=== PATIENT | female | born 1990 | race Caucasian/White ===

== ENCOUNTER 2022-01-02 12:00 | Inpatient (IN) ==
[2022-01-02] MEDS ORDERED: Promethazine INJ(RESTRICTED) 25 MG/ML 1 ml VIAL IV PRN (13:01)
[2022-01-02] MEDS ORDERED: Buffered Lidocaine 1% SYRIN 1 ml INTRADERM ONE (13:01)
[2022-01-02] MEDS ORDERED: Lactated Ringers 1000 ml BAG 1,000 ML IV ONE ×2 (13:01→16:11)
[2022-01-02] MEDS ORDERED: Nalbuphine 10 MG/ML 1 ML VIAL IV PRN (13:01)
[2022-01-02 13:27] LABS: ABS Eosinophils 0.1 10^3/ul (0-0.6); ABS Lymphocytes 1.3 10^3/ul (1.0-4.8); ABS Monocytes 0.9 10^3/ul (0-0.8); ABS Neutrophils 11.5 10^3/ul (1.5-7.7); Eosinophil % 0.6 %; Hematocrit 35 % (35-47); Hemoglobin 11.6 g/dL (12.0-16.0); Lymphocyte % 9.6 %; Mean Corpuscular HGB Conc 33 g/dL (31-36); Mean Corpuscular Hemoglobin 29 pg (27-31); Mean Corpuscular Volume 88 fL (80-97); Mean Platelet Volume 9.7 fL (7.4-10.4); Platelet Count 227 10^3/uL (150-450); Red Blood Count 4.01 10^6 /uL (3.70-4.87); Red Cell Distribution Width 13 % (10-15); White Blood Count 13.8 10^3/uL (3.5-10.8)
[2022-01-02 14:21] LABS: Urine Benzodiazepine Screen None Detected (None Detect); Urine Cannabinoids Screen None Detected (None Detect); Urine Opiates Screen None Detected (None Detect)
[2022-01-02] MEDS ORDERED: OBEPIDURAL (200 ML) 200 ML EPIDURAL ONE (15:19)
[2022-01-02] MEDS ORDERED: Lidocaine/Epinephrin 1.5%/200 5 ML AMP INJ ONE (15:23)
[2022-01-02] MEDS ORDERED: Phenylephrine 40 mcg/mL 10mL (400mcg) SYRINGE IV PUSH PRN ×2 (16:11)
[2022-01-02] MEDS ORDERED: Sodium Citrate/Citric Acid LIQ 15 ML UDC PO PRN (16:11)
[2022-01-02 16:50] LABS: Urine Appearance Cloudy; Urine Bilirubin Negative (Negative); Urine Blood Negative (Negative); Urine Color Yellow; Urine Glucose Negative (Negative); Urine Ketones Negative (Negative); Urine Nitrite Negative (Negative); Urine Protein Negative (Negative); Urine Specific Gravity 1.016 (1.002-1.030); Urine Urobilinogen Negative (Negative)
[2022-01-02] MEDS ORDERED: Oxytocin in LR 20,000 MILLI.UNIT/1,000 ML BAG IV SCH (17:00)
[2022-01-02] MEDS ORDERED: Lactated Ringers 1000 ml BAG 1,000 ML IV SCH (17:00)
[2022-01-02] MEDS ORDERED: OBEPIDURAL (200 ML) 200 ML EPIDURAL SCH (17:00)
[2022-01-02] MEDS: Lactated Ringers 1000 ml BAG 1,000 ML IV SCH (23:18)
[2022-01-03] MEDS ORDERED: fentaNYL 100 mcg/2 ml 50 MCG/ML VIAL ONE ×2 (07:47→10:00)
[2022-01-03] MEDS: Lactated Ringers 1000 ml BAG 1,000 ML IV SCH (09:33)
[2022-01-03] MEDS ORDERED: Dibucaine 1% OINT 28.35 GM TUBE PR PRN (12:32)
[2022-01-03] MEDS ORDERED: Witch Hazel PAD JAR TOPICAL PRN (12:32)
[2022-01-03] MEDS ORDERED: Oxytocin in LR 20,000 MILLI.UNIT/1,000 ML BAG IV SCH (12:45)
[2022-01-03] MEDS ORDERED: Lactated Ringers 1000 ml BAG 1,000 ML IV SCH (13:00)
[2022-01-03] MEDS ORDERED: Methylergonovine 0.2 mg AMPULE 1 ml AMP IM ONE (13:29)
[2022-01-03] MEDS ORDERED: Lidocaine 1% MPF 5 ML VIAL ONE (15:08)
[2022-01-03] MEDS ORDERED: Lidocaine 2% JELLY 6 ML Topical TOPICAL ONE (18:00)
[2022-01-03 20:46] LABS: ABS Eosinophils 0.1 10^3/ul (0-0.6); ABS Lymphocytes 1.1 10^3/ul (1.0-4.8); ABS Monocytes 1.2 10^3/ul (0-0.8); ABS Neutrophils 17.8 10^3/ul (1.5-7.7); Eosinophil % 0.5 %; Hematocrit 28 % (35-47); Hemoglobin 9.4 g/dL (12.0-16.0); Lymphocyte % 5.5 %; Mean Corpuscular HGB Conc 33 g/dL (31-36); Mean Corpuscular Hemoglobin 29 pg (27-31); Mean Corpuscular Volume 88 fL (80-97); Mean Platelet Volume 9.5 fL (7.4-10.4); Platelet Count 187 10^3/uL (150-450); Red Blood Count 3.21 10^6 /uL (3.70-4.87); Red Cell Distribution Width 13 % (10-15); White Blood Count 20.2 10^3/uL (3.5-10.8)
[2022-01-04 07:08] LABS: ABS Eosinophils 0.2 10^3/ul (0-0.6); ABS Lymphocytes 1.2 10^3/ul (1.0-4.8); ABS Neutrophils 14.1 10^3/ul (1.5-7.7); Eosinophil % 1.5 %; Hematocrit 28 % (35-47); Hemoglobin 9.5 g/dL (12.0-16.0); Lymphocyte % 7.1 %; Mean Corpuscular HGB Conc 34 g/dL (31-36); Mean Corpuscular Hemoglobin 29 pg (27-31); Mean Corpuscular Volume 88 fL (80-97); Mean Platelet Volume 8.9 fL (7.4-10.4); Platelet Count 203 10^3/uL (150-450); Red Blood Count 3.23 10^6 /uL (3.70-4.87); Red Cell Distribution Width 13 % (10-15); White Blood Count 16.5 10^3/uL (3.5-10.8)
[2022-01-05 10:49] VITALS: BP 131/74
== END 2022-01-05 11:29 | disposition home or self-care (01) | DRG 806 ==
LOC: MCHOBOUT 12:00 → MCHOB 12:19
PROVIDERS: ADMIT Midwife; ATTEND Midwife

== ENCOUNTER 2023-06-14 02:59 | Inpatient (IN) ==
[2023-06-14] MEDS: Lactated Ringers 1000 ml BAG 1,000 ML IV ONE ×2 (03:40→21:17)
[2023-06-14] MEDS ORDERED: Lidocaine 1% VIAL 10 MG/ML 30 ML VIAL INJ PRN (04:10)
[2023-06-14 04:31] LABS: ABS Eosinophils 0.1 10^3/uL (0.0-0.5); ABS Lymphocytes 1.3 10^3/uL (1.0-4.8); ABS Monocytes 0.8 10^3/uL (0.0-0.9); Eosinophil % 1.2 %; Hematocrit 30.7 % (35-45); Hemoglobin 10.5 g/dL (11.5-14.3); Lymphocyte % 14.4 %; Mean Corpuscular Hemoglobin 27.3 pg (27-33); Mean Corpuscular Hgb Conc 34.1 g/dL (31-36); Mean Platelet Volume 8.7 fL (7.5-11.2); Platelet Count 274 10^3/uL (150-450); Red Blood Count 3.84 10^6/uL (3.63-4.92); Red Cell Distribution Width 13.2 % (12-17); White Blood Count 9.3 10^3/uL (3.8-11.8)
[2023-06-14] MEDS: Lactated Ringers 1000 ml BAG 1,000 ML IV SCH (05:05)
[2023-06-14 05:19] LABS: Urine Benzodiazepine Screen None Detected (None Detect); Urine Cannabinoids Screen None Detected (None Detect); Urine Opiates Screen None Detected (None Detect)
[2023-06-14] MEDS: fentaNYL 100 mcg/2 ml 50 MCG/ML VIAL ONE (05:30)
[2023-06-14] MEDS: Bupivacaine 0.25% SDV PF 10 ML VIAL INJ ONE (05:30)
[2023-06-14] MEDS: OBEPIDURAL (200 ML) 200 ML EPIDURAL ONE (06:00)
[2023-06-14] MEDS: Oxytocin in LR 20,000 MILLI.UNIT/1,000 ML BAG IV ONE (06:45)
[2023-06-14] MEDS ORDERED: Dibucaine 1% OINT 28.35 GM TUBE PR PRN (07:00)
[2023-06-14] MEDS ORDERED: Glycerin ADULT 2.4 gm SUPP PR PRN (07:00)
[2023-06-14] MEDS ORDERED: Sodium Citrate/Citric Acid LIQ 15 ML UDC PO PRN (07:33)
[2023-06-14] MEDS: Witch Hazel PAD JAR TOPICAL PRN (08:16)
[2023-06-14] MEDS: Buffered Lidocaine 1% SYRIN 1 ml INTRADERM ONE (21:17)
[2023-06-14] MEDS: Lidocaine 1.5% EPI 1:200,000 30 ML SDV ONE (21:17)
[2023-06-15 06:26] LABS: ABS Eosinophils 0.1 10^3/uL (0.0-0.5); ABS Monocytes 0.8 10^3/uL (0.0-0.9); ABS Neutrophils 10.4 10^3/uL (1.5-7.6); Eosinophil % 0.8 %; Hematocrit 28.4 % (35-45); Hemoglobin 9.5 g/dL (11.5-14.3); Lymphocyte % 14.7 %; Mean Corpuscular Hemoglobin 27.1 pg (27-33); Mean Corpuscular Hgb Conc 33.5 g/dL (31-36); Mean Corpuscular Volume 80.9 fL (80-97); Platelet Count 269 10^3/uL (150-450); Red Blood Count 3.51 10^6/uL (3.63-4.92); Red Cell Distribution Width 13.4 % (12-17); White Blood Count 13.3 10^3/uL (3.8-11.8)
[2023-06-15 07:20] VITALS: BP 112/69
== END 2023-06-15 10:38 | disposition home or self-care (01) | DRG 807 ==
LOC: MCHOBOUT 02:59 → MCHOB 04:11
PROVIDERS: ADMIT Midwife; ATTEND Midwife